=== PATIENT | female | born 1995 | race African-American/Black ===

== ENCOUNTER 2016-08-02 19:03 | Emergency (ER) | payer MEDICAID ==
--- NOTE | ~2016-08-02 | CR63 ---
[facility] A Service of [facility] & [facility] RADIOLOGY TEXT RESULTS PATIENT: WILTON MAHAN LOCATION: CFTX : [birth year] UNIT #: [id number] AGE: [address]: KEN NUNES APRN SEX: F ORDER DR: [id number] [facility] [address] [place], [place] [address] [id number] E MR#: [id number] Acc #: [id number] NAME: WILTON MAHAN : 1995 SEX: F STUDY DATE/TIME: 08/02/2016 19:14 UNIT: [facility] ROOM: STUDY DESCRIPTION: CR Chest 2 View Attending Physician: Ken Nunes Aprn Ordering Physician: Ed Doc Latrice Ornelas Primary Care Physician: No Primary Care Physician MEDICAL IMAGING REPORT This report is preliminary unless electronic signature is present EXAM PA and lateral chest HISTORY Cough for five months. Back pain. FINDINGS PA and lateral examination of the chest upright shows a good expansion of the parenchyma with a normal distribution of the pulmonary vascularity. There is no indication of congestion, effusion, infiltrate, tumor, or nodular density. The pleural reflections and diaphragmatic contours are normal. The cardiac silhouette and mediastinal anatomy is within normal limits. IMPRESSION Normal chest. Dictated by... Dony Hooper M.D. THIS IS AN ELECTRONICALLY VERIFIED REPORT Dony Hooper M.D. at 08/02/2016 11:13 PM DFL/kikor TD: 08/02/2016 21:48 JOB #: [id number] MEDICAL IMAGING REPORT Page 1 of 1 COPY
== END 2016-08-02 20:55 | disposition home or self-care (01) ==
LOC: CFTX 19:03
DX: M54.6 Pain in thoracic spine (principal); J45.901 Unspecified asthma with (acute) exacerbation; Z72.0 Tobacco use; F17.200 Nicotine dependence, unspecified, uncomplicated
CPT/HCPCS: 71020; 84703; 96372; 99283; J1885